=== PATIENT | male | born 1950 | race Caucasian/White ===

== ENCOUNTER 2016-10-15 10:21 | Emergency (ER) | payer BC, MEDICARE, OTHER ==
[2016-10-15 10:54] VITALS: BP 149/96
[2016-10-15] MEDS ORDERED: DIPHTH,PERTUSS(ACELL),TET VAC 0.5 ML VIAL IM ONE ×2 (11:26→11:34)
--- NOTE | 2016-10-15 11:40 | ERNOTE ---
Medical Problem HPI - Narrative Date of Service: 10/15/16 - General Chief Complaint: Laceration Time Seen by Provider: 10/15/16 11:20 Source: patient Exam Limitations: no limitations - Immun/Allergies/Home Medications Immunizations: IMMUNIZATION HX Immunizations Up to Date Yes History of Influenza Vaccine No Hx Pneumococcal Vaccination No Allergies/Adverse Reactions: Allergies acetaminophen [From Vicodin] Allergy (Mild, Verified 10/15/16 10:55) Vomiting hydrocodone [From Vicodin] Allergy (Mild, Verified 10/15/16 10:55) Vomiting Home Medications: HOME MEDICATIONS Aspirin 81 mg PO DAILY 10/15/16 [Last Taken Unknown] Sulfamethoxazole/Trimethoprim [Bactrim Ds] 1 tab PO BID #28 tab 10/15/16 [Last Taken Unknown] - History of Present History Narrative: Pt. comes in with c/o avulsion injury from his drill grinding on his L volar index finger. Pt. denies any anticoagulation and states that although the injury happened at 10 am yesterday it did not stop bleeding until this morning after having the dressing changes a few times. Pt. wound was not cleansed after it occurred. Pt. denies any numbness or tingling. Review of Systems - Review of Systems Constitutional: Present: no symptoms reported EYE: Present: no symptoms reported ENT: Present: no symptoms reported Respiratory: Present: no symptoms reported. Absent: shortness of breath, cough , wheezing Cardiology: Present: no symptoms reported. Absent: chest pain, palpitations, edema Gastrointestinal/Abdominal: Present: no symptoms reported. Absent: nausea, vomiting, diarrhea Genitourinary: Present: no symptoms reported Musculoskeletal: Present: no symptoms reported. Absent: back pain, joint pain Skin: Present: other - avulsion partial thickness open volar L index finger Neurological: Present: no symptoms reported. Absent: headache, dizziness/light- headedness, numbness, tingling - Patient's Past Medical History Patient History - Medical: No pertinent hx Patient History - Cardiac/Respiratory: No pertinent hx Patient History - Cancer: No Hx of Cancer Patient History - Surgical Procedures: Total Knee Replacement Patient History - Other: None - Social History Living Situations: home Psych History: No pertinent hx Smoking Status: Former smoker - Immunizations Immunizations Up to Date: Yes Hx Pneumococcal Vaccination: No History of Influenza Vaccine: No Physical Exam - Physical Exam General Appearance: Present: wd/wn, alert, no apparent distress Eye Exam: Normal inspection: bilateral, PERRL: bilateral, EOMI: bilateral Neck: Present: normal inspection Respiratory: Present: no respiratory distress, normal breath sounds, no accessory muscle use, chest nontender, lungs clear Cardiovascular/Chest: Present: regular rate, rhythm, no murmur, normal peripheral pulses Back Exam: Present: normal inspection, normal range of motion, no CVA tenderness , no vertebral tenderness Extremity Exam: Present: non-tender, normal range of motion, no edema, other - avulsion partial thickness open volar L index finger 1cm in diameter Neurological Exam: Present: alert, oriented, normal mood/affect, no motor/ sensory deficits Skin Exam: Present: normal color, warm/dry, other - avulsion injury see above. Absent: pallor, skin rash ED Progress - Vital Signs Patient's Vital Signs:: I have reviewed the patient's vital signs. Vital Signs: Vital Signs 10/15/16 10:51 Temperature 36.6 C Pulse Rate 68 Respiratory 16 Rate Blood Pressure 149/96 O2 Sat by Pulse 97 Oximetry - Progress/Reassessment Chief Complaint: Laceration Departure - Departure Clinical Impression: Avulsion of skin of finger without complication Qualifiers: Encounter type: initial encounter Qualified Code(s): S61.209A - Unspecified open wound of unspecified finger without damage to nail, initial encounter Disposition: Home self-care Condition: Good Instructions: Deep Skin Avulsion Additional Instructions: Please change dressing daily and follow up with wound care clinic by calling there for appointment tomorrow. Referrals: Maverick Soria DO [Primary Care Provider] - Prescriptions: Sulfamethoxazole/Trimethoprim [Bactrim Ds] 1 tab PO BID #28 tab
--- OUTSIDE RECORDS SUMMARY | 2016-10-15 11:47 | XMS REPORT | Continuity of Care Document ---
:1950 Author Organization [facility] [place] [address] Care Team Providers Name Role Phone Deniz Ramírez Primary Care Provider [phone] Source Comments This disclosure is being made pursuant to the [employer] program and maynot contain all information available regarding this patient.[facility] Active Allergies and Adverse Reactions Allergen Noted Date Severity Reactions Comments Other 06/09/2014 High Anaphylaxis Shrimp Current Medications Be aware that medications may not be up to date as of this document. Alwaysverify current medications with the patient. Prescription Sig. Disp. Refills Start Date End Date Status aspirin 81 MG Take 1 tablet Active tablet by mouth daily. omeprazole Take 1 90 capsule 3 06/21/2015 Active (PRILOSEC) 40 MG capsule by capsule mouth every morning before breakfast. polyvinyl alcohol 1 drop as Active (ARTIFICIAL TEARS) needed. 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 Overview: Overview: DENIZ RAMÍREZ MD Impaired fasting glucose 02/03/2010 Overview: Overview: DENIZ RAMÍREZ MD Encounter for long-term (current) use of other medications 09/30/2009 Overview: Overview: DENIZ RAMÍREZ MD Hyperlipidemia 09/30/2009 Overview: Overview: DENIZ RAMÍREZ MD General medical examination 08/31/2009 Overview: Overview: DENIZ RAMÍREZ MD Generalized osteoarthrosis 08/31/2009 Overview: Overview: Screening for endocrine, nutritional, metabolic and immunity disorder 2009 Overview: Overview: DENIZ RAMÍREZ MD Special screening for malignant neoplasm of prostate 08/31/2009 Overview: Overview: DENIZ RAMÍREZ MD Most Recent Encounters Date Type Specialty Providers Description 10/12/2016 Data Import 10/10/2016 Refill Internal Medicine Deniz Ramírez MD Immunizations Name Dates Previously Given Next Due Pneumococcal Conjugate-13 06/21/2015 Pneumococcal Polysaccharide-23 06/11/2013 Zoster 07/16/2012 Social History Tobacco Use Types Packs/Day Years Used Date Never Smoker Last Filed Vital Signs Vital Sign Reading Time Taken Blood Pressure 132/84 02/23/2016 10:49 AM CDT Pulse 58 02/23/2016 10:49 AM CDT Temperature - - Respiratory Rate - - Height 1.702 m (5' 7") 02/23/2016 10:49 AM CDT Weight 101.606 kg (224 lb) 02/23/2016 10:49 AM CDT Body Mass Index 35.08 02/23/2016 10:49 AM CDT Oxygen Saturation - - Plan of Care Date Type Specialty Providers Description 10/25/2016 Appointment Internal Medicine Deniz Ramírez MD [facility] [address] [address] [phone] (Fax) Health Maintenance Due Date Last Done Comments Lab-Urine Microalbumin 02/20/1958 Hepatitis C Screening 02/20/1966 Tetanus/Pertussis (1 - Tdap) 02/20/1967 Well Adult Visit 02/20/1998 Eye (Ophthalmology) Exam 12/17/2015 12/16/2014, Additional history exists 12/15/2014, 12/15/2014 Foot Exam 12/17/2015 12/16/2014 Influenza Immunization (#1) 2016 LAB-HgA1C 08/18/2016 02/16/2016, Additional history exists 12/09/2014, 06/02/2014 Lab-Lipids 02/15/2017 02/16/2016, Additional history exists 06/16/2015, 12/09/2014 Colonoscopy 09/28/2025 09/29/2015, Additional history exists 09/29/2015, 11/08/2012 Zoster Vaccine 60+ Completed 07/16/2012 Pneumococcal Low/Medium Risk Completed 06/21/2015, 65+ 06/11/2013 Results from Last 3 Months Not on file
== END 2016-10-15 11:59 | disposition home or self-care (01) ==
LOC: ER 10:21
DX: S61.211A Laceration without foreign body of left index finger without damage to nail, initial encounter (principal); W29.8XXA Contact with other powered hand tools and household machinery, initial encounter; Z23 Encounter for immunization; Z87.891 Personal history of nicotine dependence; Z96.659 Presence of unspecified artificial knee joint